=== PATIENT | female | born 1980 ===

== ENCOUNTER 2025-02-09 12:23 | Outpatient (CLI) | payer OTHER ==
[~2025-02-09 12:23] MED LIST: DURICEF500 MG PO; PHENERGAN25 MG PO; PROTONIX40 MG PO; PYRIDIUM200 MG PO
== END 2025-02-11 15:17 | disposition home or self-care (01) ==
LOC: RAD 12:23
DX: M41.20 Other idiopathic scoliosis, site unspecified (principal); M54.2 Cervicalgia; M62.830 Muscle spasm of back